=== PATIENT | male | born 1980 | race African-American/Black ===

== ENCOUNTER 2016-07-17 06:43 | Emergency (ER) | payer MEDICAID ==
[~2016-07-17] VITALS: Ht 172.7 cm; Wt 72.0 kg
[2016-07-17] MEDS ORDERED: KETOROLAC 60MG/2ML VIAL IM ONE (08:00)
[2016-07-17 08:09] VITALS: BP 106/61
== END 2016-07-17 08:36 | disposition home or self-care (01) ==
LOC: ER 06:45
DX: M54.5 Low back pain (principal); R00.1 Bradycardia, unspecified
CPT/HCPCS: 96372; 99283; J1885

== ENCOUNTER 2016-11-12 04:18 | Emergency (ER) | payer MEDICAID, OTHER ==
[~2016-11-12] VITALS: Ht 180.3 cm; Wt 69.0 kg
[2016-11-12] MEDS ORDERED: KETOROLAC 60MG/2ML VIAL IM STA (05:00)
[2016-11-12] MEDS ORDERED: MORPHINE SULFATE 4 MG/ML CPJ (NOT FOR IM USE) IV STA (05:00)
[2016-11-12] MEDS ORDERED: SODIUM CHLORIDE 0.9% 1,000 ML IV ONE (05:00)
[2016-11-12] MEDS ORDERED: ONDANSETRON HCL 4MG/2ML VIAL IV STA (05:00)
[2016-11-12 05:34] LABS: EOSINOPHILS % 3.2 % (0.0-5.0); HEMATOCRIT. 38.1 % (42.0-52.0); HEMOGLOBIN. 12.6 g/dL (14.0-18.0); LYMPHOCYTES % 25.6 % (20.0-50.0); MEAN CORPUSCULAR VOLUME 78.6 fL (80.0-94.0); MEAN PLATELET VOLUME 8.2 fl (7.4-10.4); MONOCYTES % 8.3 % (2.0-8.0); NEUTROPHILS % 61.9 % (40.0-76.0); PLATELET 210 x1000/uL (130-400); RED BLOOD CELL COUNT 4.85 mill/uL (4.7-6.1); RED CELL DISTRIBUTION WIDTH 14.1 % (11.6-14.6)
[2016-11-12 05:40] LABS: PROTHROMBIN TIME 10.7 sec
[2016-11-12 05:50] LABS: CARBON DIOXIDE 30 mEq/L (21-32); CHLORIDE 108 mEq/L (98-107); TROPONIN I < 0.02 ng/mL (0.00-0.04)
[2016-11-12] MEDS ORDERED: MORPHINE SULFATE 4 MG/ML CPJ (NOT FOR IM USE) IV ONE (06:00)
[2016-11-12] MEDS ORDERED: LORAZEPAM 2MG/ML CPJ IV ONE (06:00)
[2016-11-12 06:22] VITALS: BP 162/83
== END 2016-11-12 07:30 | disposition home or self-care (01) ==
LOC: ER 04:18
DX: K80.20 Calculus of gallbladder without cholecystitis without obstruction (principal); R03.0 Elevated blood-pressure reading, without diagnosis of hypertension
CPT/HCPCS: 36415; 74176; 80053; 83690; 83880; 84484; 85025; 85610; 96361; 96372; 96374; 96375; 96376; 99285; J1885; J2060; J2270; J2405; J7030

== ENCOUNTER 2017-08-10 00:43 | Inpatient (IN) | payer MEDICAID, OTHER ==
[~2017-08-10] VITALS: Ht 185.4 cm; Wt 70.3 kg
[2017-08-10] MEDS ORDERED: SODIUM CHLORIDE 0.9% 1,000 ML IV ONE (03:14)
[2017-08-10] MEDS ORDERED: KETOROLAC 30MG/ML VIAL IV STA (03:14)
[2017-08-10] MEDS ORDERED: FAMOTIDINE 20MG/2ML VIAL IV STA (03:14)
[2017-08-10] MEDS ORDERED: ONDANSETRON HCL 4MG/2ML VIAL IV STA (03:14)
[2017-08-10 03:44] LABS: BASOPHILS % 0.5 % (0.0-2.0); EOSINOPHILS % 0.6 % (0.0-5.0); HEMATOCRIT. 38.8 % (42.0-52.0); HEMOGLOBIN. 12.8 g/dL (14.0-18.0); LYMPHOCYTES % 15.6 % (20.0-50.0); MEAN CORPUSCULAR HEMOGLOBIN 25.8 pg (28.0-32.0); MEAN CORPUSCULAR VOLUME 78.3 fL (80.0-94.0); MEAN PLATELET VOLUME 8.3 fl (7.4-10.4); MONOCYTES % 5.7 % (2.0-8.0); NEUTROPHILS % 77.6 % (40.0-76.0); PLATELET 205 x1000/uL (130-400); RED BLOOD CELL COUNT 4.95 mill/uL (4.7-6.1)
[2017-08-10 03:51] LABS: CHLORIDE 107 mEq/L (98-107)
[2017-08-10 03:52] LABS: PROTHROMBIN TIME 10.9 sec (9.4-11.6)
[2017-08-10 03:54] LABS: ETHANOL BLOOD < 10 mg/dL
[2017-08-10 07:15] LABS: CLARITY URINE CLEAR (CLEAR); COLOR URINE YELLOW (YELLOW); KETONES URINE NEGATIVE (NEGATIVE); LEUKOCYTE ESTERASE URINE NEGATIVE (NEGATIVE); NITRITE URINE NEGATIVE (NEGATIVE); OCCULT BLOOD URINE NEGATIVE (NEGATIVE); PROTEIN URINE NEGATIVE (NEGATIVE); SPECIFIC GRAVITY URINE 1.018 (1.005-1.030); UROBILINOGEN URINE 0.2 E.U./dL (0.2-1.0)
[2017-08-10 08:00] VITALS: BP 102/62
[2017-08-10 08:11] LABS: *AMPHETAMINES SCREEN URINE NEGATIVE (NEGATIVE); *BARBITURATES SCREEN URINE NEGATIVE (NEGATIVE); *BENZODIAZEPINES SCREEN URINE NEGATIVE (NEGATIVE); *COCAINE SCREEN URINE PRESUMTIVE POSITIVE (NEGATIVE)
[2017-08-10 08:12] LABS: CANNABINOID URINE SCREEN NEGATIVE (NEGATIVE); METHADONE URINE SCREEN NEGATIVE (NEGATIVE); OPIATES URINE SCREEN NEGATIVE (NEGATIVE); PHENCYCLIDINE URINE SCREEN NEGATIVE (NEGATIVE)
[2017-08-10 08:56] VITALS: BP 102/62
[2017-08-10] MEDS ORDERED: DIPHENHYDRAMINE 50MG/ML VIAL IV PRN (09:00)
[2017-08-10] MEDS ORDERED: GUAIFENESIN 200MG/10ML SUGAR FREE UDC PO PRN (09:00)
[2017-08-10] MEDS ORDERED: DOCUSATE SODIUM 100MG CAPSULE PO PRN (09:00)
[2017-08-10] MEDS ORDERED: CLONIDINE 0.1MG TABLET PO PRN (09:00)
[2017-08-10] MEDS ORDERED: LORAZEPAM 0.5MG TABLET PO PRN (09:00)
[2017-08-10] MEDS ORDERED: KETOROLAC 15MG/ML VIAL IV PRN (09:00)
[2017-08-10] MEDS ORDERED: IPRATROPIUM/ALBUTEROL 0.5-3(2.5)MG/3ML NEB INH PRN (09:00)
[2017-08-10] MEDS ORDERED: ONDANSETRON HCL 4MG/2ML VIAL IV PRN (09:00)
[2017-08-10] MEDS ORDERED: ACETAMINOPHEN 325MG TABLET PO PRN (09:00)
[2017-08-10] MEDS ORDERED: NA PHOS,M-B/NA PHOS,DI-BA ENEMA 118ML PR PRN (09:00)
[2017-08-10] MEDS ORDERED: MAGNESIUM/ALUMINUM HYDROXIDE/SIMETHICONE 30ML UDC PO PRN (09:00)
[2017-08-10] MEDS: PANTOPRAZOLE SODIUM 40 MG/VIAL IV SCH (09:16)
[2017-08-10] MEDS: SODIUM CHLORIDE 0.9% 1,000 ML IV SCH ×2 (12:01→21:03)
[2017-08-10] MEDS: SUCRALFATE 1 G/10 ML UDC PO SCH ×3 (12:01→21:02)
[2017-08-10 12:16] VITALS: BP 100/58
[2017-08-10 13:45] LABS: CREATINE KINASE MB FRACTION 2.5 ng/mL (0.5-3.6)
[2017-08-10 16:05] VITALS: BP 104/56
[2017-08-10 19:27] VITALS: BP 99/54
[2017-08-10] MEDS ORDERED: ZOLPIDEM TARTRATE 5MG TABLET PO PRN (21:00)
[2017-08-10 23:48] VITALS: BP 101/46
[2017-08-11 03:35] VITALS: BP 106/64
[2017-08-11] MEDS: SUCRALFATE 1 G/10 ML UDC PO SCH (06:18)
[2017-08-11 08:00] VITALS: BP 115/65
[2017-08-11] MEDS: PANTOPRAZOLE SODIUM 40 MG/VIAL IV SCH (09:13)
== END 2017-08-11 12:00 | disposition home or self-care (01) | DRG 446 ==
LOC: ER 00:43 → 6EST 04:37 → ENRESERV 07:38 → 6WST 11:17
PROVIDERS: ADMIT Internal Medicine; ATTEND Internal Medicine
DX: K80.50 Calculus of bile duct without cholangitis or cholecystitis without obstruction (principal); E86.0 Dehydration; K80.20 Calculus of gallbladder without cholecystitis without obstruction; R00.1 Bradycardia, unspecified; F14.10 Cocaine abuse, uncomplicated; Z83.3 Family history of diabetes mellitus
CPT/HCPCS: 36415; 71045; 74176; 76705; 80053; 80305; 81003; 82553; 83036; 83605; 83690; 84484; 85025; 85610; 93005; 96361; 96374; 96375; 99285; C9113; G0482; J1885; J2405; J3490; J7030